=== PATIENT | male | born 1980 | race Caucasian/White ===

== ENCOUNTER 2017-06-22 12:29 | Emergency (ER) | payer MEDICAID ==
[~2017-06-22] VITALS: Ht 167.6 cm; Wt 71.0 kg
[~2017-06-22 12:29] MED LIST: KEP500T PO; LEVE10002 PO; PHEN100C4 PO
[2017-06-22] MEDS ORDERED: PRED20TA PO (12:44)
[2017-06-22] MEDS ORDERED: DOXY100C43 PO (12:44)
[2017-06-22 12:57] VITALS: BP 143/83
== END 2017-06-22 13:20 | disposition home or self-care (01) ==
LOC: ER 12:29
DX: L03.114 Cellulitis of left upper limb (principal); L03.113 Cellulitis of right upper limb; L23.7 Allergic contact dermatitis due to plants, except food; G89.29 Other chronic pain; F12.90 Cannabis use, unspecified, uncomplicated; Z60.2 Problems related to living alone; Z59.0 Homelessness
CPT/HCPCS: 99283

== ENCOUNTER 2017-07-15 14:09 | Inpatient (IN) | payer MEDICAID ==
[~2017-07-15] VITALS: Ht 167.6 cm; Wt 80.0 kg
[~2017-07-15 14:09] MED LIST changes: +PRED20TA PO
[2017-07-15 15:44] LABS: BASOPHILS # (AUTO) 0.1 X10'3 (0-0.2); BASOPHILS % (AUTO) 0.5 % (0-1); EOSINOPHILS # (AUTO) 0.5 X10'3 (0-0.9); EOSINOPHILS % (AUTO) 2.7 % (0-6); HEMATOCRIT 38.3 % (42.0-52.0); HEMOGLOBIN 13.3 g/dl (14.0-17.9); LYMPHOCYTES # (AUTO) 2.1 X10'3 (1.1-4.8); LYMPHOCYTES % (AUTO) 12.8 % (21-51); MEAN CORPUSCULAR HEMOGLOBIN 29.6 PG (27.0-31.0); MEAN CORPUSCULAR HGB CONC 34.6 % (33.0-36.5); MEAN CORPUSCULAR VOLUME 85.6 FL (78-98); MEAN PLATELET VOLUME 7.4 FL (7.4-10.4); MONOCYTES # (AUTO) 1.2 X10'3 (0-0.9); MONOCYTES % (AUTO) 7.6 % (2-12); NEUTROPHILS # (AUTO) 12.5 X10'3 (1.8-7.7); NEUTROPHILS % (AUTO) 76.4 % (42-75); PLATELET COUNT 392 X10'3 (140-440); RED BLOOD COUNT 4.48 X10'6 (4.70-6.10); RED CELL DISTRIBUTION WIDTH 15.4 % (11.5-14.5); WHITE BLOOD COUNT 16.4 X10'3 (4.5-11.0)
[2017-07-15 15:58] LABS: INR 1.1 INR; PARTIAL THROMBOPLASTIN TIME 35 SECONDS (22-32); PROTHROMBIN TIME 11.3 SECONDS (9.0-12.0)
[2017-07-15 16:04] LABS: ALANINE AMINOTRANSFERASE 17 U/L (12-78); ALBUMIN 3.4 G/DL (3.4-5.0); ALBUMIN/GLOBULIN RATIO 0.8 (1.1-1.5); ALKALINE PHOSPHATASE 77 IU/L (46-116); ANION GAP 10 (8-16); ASPARTATE AMINO TRANSFERASE 17 U/L (10-37); BILIRUBIN,TOTAL 0.5 MG/DL (0.1-1.0); BLOOD UREA NITROGEN 8 MG/DL (7-18); BUN/CREATININE RATIO 7.9 (5.4-32.0); CALCIUM 8.6 MG/DL (8.5-10.1); CHLORIDE 101 MMOL/L (99-107); CREATININE 1.01 MG/DL (0.60-1.10); GLUCOSE 148 MG/DL (70-104); SODIUM 139 MMOL/L (135-145); TOTAL CARBON DIOXIDE 28.4 MMOL/L (24-32); TOTAL PROTEIN 7.6 G/DL (6.4-8.2); eGFR 84 ML/MIN
[2017-07-15] MEDS ORDERED: normal saline 1000ML IV soln IV ONE (16:20)
[2017-07-15] MEDS ORDERED: potassium Cl 20 mEq SR tablet PO ONE (16:35)
[2017-07-15] MEDS ORDERED: ketorolac trometh. 30mg/ml inj. IV ONE (16:35)
[2017-07-15] MEDS ORDERED: morphine 4 MG/ML inj SYRINge IV ONE (16:35)
[2017-07-15] MEDS ORDERED: ondansetron/PF 4mg/2ml inj IV ONE (16:35)
[2017-07-15] MEDS ORDERED: iohexol 300mg/ml 100ml inj. ONE (17:04)
[2017-07-15 17:48] LABS: CREATINE KINASE 119 U/L (39-308)
[2017-07-15 18:22] LABS: URINE AMPHETAMINE SCREEN POSITIVE (Neg); URINE BARBITUATE SCREEN NEGATIVE (Neg); URINE BENZODIAZEPINES SCREEN NEGATIVE (Neg); URINE CANNABINOID SCREEN POSITIVE (Neg); URINE COCAINE SCREEN NEGATIVE (Neg); URINE METHADONE SCREEN NEGATIVE (Neg); URINE OPIATE SCREEN POSITIVE (Neg); URINE PHENCYCLIDINE SCREEN NEGATIVE (Neg)
[2017-07-15] MEDS ORDERED: LIDOcaine 1.5% w/epinephrine 1:200,000 5ml ampul IJ ONE (19:00)
[2017-07-15] MEDS ORDERED: CefTRIAXone 2gm/NS 100ml IVPB 100 ML IV ONE (19:00)
[2017-07-15] MEDS: vancomycin/NS 1 GM ADD-VANTAGE 250 ML IV SCH (19:19)
[2017-07-15 19:34] LABS: PHENYTOIN (DILANTIN) < 0.5 UG/ML (10.0-20.0)
[2017-07-15] MEDS ORDERED: PHEN100C4 PO (19:53)
[2017-07-15] MEDS ORDERED: magnesium hydroxide 30ml (MOM) UD suspension PO PRN (19:55)
[2017-07-15] MEDS ORDERED: potassium Cl 40MEQ/NS 500ml 500 ML IV PRN ×2 (19:55)
[2017-07-15] MEDS ORDERED: HYDROcodone/acetaminophen 5mg/325mg tablet PO PRN (19:55)
[2017-07-15] MEDS ORDERED: ondansetron/PF 4mg/2ml inj IV PRN (19:55)
[2017-07-15] MEDS: K and/or MAG REPLACEMENT MC SCH (19:55)
[2017-07-15] MEDS: cefTRIAXone 1g/NS 100ml IVPB 100 ML IV SCH (19:55)
[2017-07-15] MEDS ORDERED: mag hydrox/Alum hydrox/simeth 30ml oral suspension PO PRN (19:55)
[2017-07-15] MEDS ORDERED: potassium Cl 20 mEq SR tablet PO PRN ×2 (19:55)
[2017-07-15] MEDS ORDERED: acetaminophen 325mg tablet PO PRN ×2 (19:55)
[2017-07-15] MEDS ORDERED: vancomycin/NS 1 GM ADD-VANTAGE 250 ML IV SCH (20:00)
[2017-07-15] MEDS ORDERED: temazepam 15mg capsule PO PRN (21:00)
[2017-07-15] MEDS ORDERED: potassium Cl 40MEQ/NS 500ml 500 ML IV ONE (22:44)
[2017-07-16] MEDS: HYDROcodone/acetaminophen 10/325mg tab PO PRN ×3 (02:05→17:59)
[2017-07-16] MEDS: vancomycin/NS 1 GM ADD-VANTAGE 250 ML IV SCH ×3 (03:52→20:54)
[2017-07-16 05:51] LABS: BASOPHILS # (AUTO) 0.1 X10'3 (0-0.2); BASOPHILS % (AUTO) 0.6 % (0-1); EOSINOPHILS # (AUTO) 0.5 X10'3 (0-0.9); EOSINOPHILS % (AUTO) 3.4 % (0-6); HEMATOCRIT 35.5 % (42.0-52.0); HEMOGLOBIN 12.1 g/dl (14.0-17.9); LYMPHOCYTES # (AUTO) 2.3 X10'3 (1.1-4.8); LYMPHOCYTES % (AUTO) 15.2 % (21-51); MEAN CORPUSCULAR HEMOGLOBIN 29.9 PG (27.0-31.0); MEAN CORPUSCULAR VOLUME 87.9 FL (78-98); MEAN PLATELET VOLUME 7.8 FL (7.4-10.4); MONOCYTES # (AUTO) 1.6 X10'3 (0-0.9); MONOCYTES % (AUTO) 10.9 % (2-12); NEUTROPHILS # (AUTO) 10.5 X10'3 (1.8-7.7); NEUTROPHILS % (AUTO) 69.9 % (42-75); PLATELET COUNT 336 X10'3 (140-440); RED BLOOD COUNT 4.04 X10'6 (4.70-6.10); RED CELL DISTRIBUTION WIDTH 15.3 % (11.5-14.5)
[2017-07-16 06:25] LABS: ALBUMIN 2.6 G/DL (3.4-5.0); ANION GAP 7 (8-16); BLOOD UREA NITROGEN 7 MG/DL (7-18); BUN/CREATININE RATIO 7.9 (5.4-32.0); CALCIUM 8.1 MG/DL (8.5-10.1); CHLORIDE 107 MMOL/L (99-107); CREATININE 0.89 MG/DL (0.60-1.10); GLUCOSE 122 MG/DL (70-104); POTASSIUM 4.4 MMOL/L (3.5-5.1); SODIUM 142 MMOL/L (135-145); TOTAL CARBON DIOXIDE 28.2 MMOL/L (24-32); eGFR > 90 ML/MIN
[2017-07-16] MEDS: K and/or MAG REPLACEMENT MC SCH (08:00)
[2017-07-16 08:10] VITALS: BP 135/78
[2017-07-16] MEDS: cefTRIAXone 1g/NS 100ml IVPB 100 ML IV SCH (09:02)
[2017-07-16 09:41] LABS: HEMOGLOBIN A1C 5.9 % (4.5-6.2)
[2017-07-16 10:00] VITALS: BP 130/74
[2017-07-16 19:00] VITALS: BP 110/66
[2017-07-16] MEDS ORDERED: VANCOMYCIN LEVEL IV NR (19:30)
== END 2017-07-16 21:20 | disposition left against medical advice (07) | DRG 720 ==
LOC: ER 14:09 → ED HOLD 19:53 → ORTHO 4S 07-16 07:50 → OBSVTOIN 07-16 14:00
PROVIDERS: ADMIT Hospitalist; ATTEND Family Medicine
PROC: BQ2R1ZZ Computerized Tomography (CT Scan) of Right Lower Extremity using Low Osmolar Contrast (ICD-10-PCS; principal; 2017-07-15)
DX: A41.9 Sepsis, unspecified organism (principal); L03.115 Cellulitis of right lower limb; E87.6 Hypokalemia; F12.90 Cannabis use, unspecified, uncomplicated; F15.10 Other stimulant abuse, uncomplicated; G40.909 Epilepsy, unspecified, not intractable, without status epilepticus; M72.9 Fibroblastic disorder, unspecified; Z53.21 Procedure and treatment not carried out due to patient leaving prior to being seen by health care provider; Z60.2 Problems related to living alone; D64.9 Anemia, unspecified; M54.9 Dorsalgia, unspecified; G89.29 Other chronic pain; Z88.0 Allergy status to penicillin; Z59.0 Homelessness; Z86.14 Personal history of Methicillin resistant Staphylococcus aureus infection
CPT/HCPCS: 10060; 36415; 73701; 80048; 80053; 80185; 80202; 80305; 82550; 83036; 83605; 84132; 84145; 85025; 85610; 85730; 87040; 93005; 93971; 96361; 96365; 96375; 99285; A6258; A6266; A6402; A6446; A6449; G0378; J0696; J1885; J2270; J2405; J3370; J3480; J3490; J7030; Q9967

== ENCOUNTER 2017-11-05 09:54 | Emergency (ER) | payer MEDICAID ==
[~2017-11-05] VITALS: Ht 165.1 cm; Wt 75.9 kg
[~2017-11-05 09:54] MED LIST changes: -KEP500T PO; -LEVE10002 PO; -PRED20TA PO
[2017-11-05] MEDS ORDERED: HYDROcodone/acetaminophen 5mg/325mg tablet PO ONE (11:25)
[2017-11-05] MEDS ORDERED: cephalexin 250mg capsule PO ONE ×2 (11:25)
[2017-11-05] MEDS ORDERED: sulfamethoxazole/trimethoprim DS (800/160mg) tablet PO ONE (11:25)
[2017-11-05] MEDS ORDERED: SULF1TAB49 PO (11:51)
[2017-11-05] MEDS ORDERED: CEPH-572 PO (11:51)
[2017-11-05] MEDS ORDERED: TRAM50TA2 PO (11:51)
[2017-11-05] MEDS ORDERED: MUPI22OI30 TOP (11:51)
[2017-11-05 12:00] VITALS: BP 138/99
== END 2017-11-05 12:15 | disposition home or self-care (01) ==
LOC: ER 09:54
DX: K13.0 Diseases of lips (principal); F12.10 Cannabis abuse, uncomplicated; Z88.0 Allergy status to penicillin
CPT/HCPCS: 99284

== ENCOUNTER 2017-11-05 23:41 | Emergency (ER) | payer MEDICAID ==
[~2017-11-05] VITALS: Ht 167.6 cm; Wt 68.5 kg
[~2017-11-05 23:41] MED LIST changes: +CEPH-572 PO; +MUPI22OI30 TOP; +SULF1TAB49 PO; +TRAM50TA2 PO
[2017-11-05 23:47] VITALS: BP 167/102
== END 2017-11-06 03:12 | disposition left against medical advice (07) ==
LOC: ER 23:42
DX: L08.9 Local infection of the skin and subcutaneous tissue, unspecified (principal); Z53.21 Procedure and treatment not carried out due to patient leaving prior to being seen by health care provider

== ENCOUNTER 2017-11-10 11:35 | Emergency (ER) | payer MEDICAID | END 2017-11-10 14:10 | disposition left against medical advice (07) | LOC: ER 11:35 | DX: L02.818 Cutaneous abscess of other sites (principal); Z53.21 Procedure and treatment not carried out due to patient leaving prior to being seen by health care provider ==

== ENCOUNTER 2017-12-17 17:08 | Emergency (ER) | payer MEDICAID ==
[~2017-12-17] VITALS: Ht 167.6 cm; Wt 76.0 kg
[~2017-12-17 17:08] MED LIST changes: -CEPH-572 PO; -MUPI22OI30 TOP; -SULF1TAB49 PO; -TRAM50TA2 PO
[2017-12-17 17:10] VITALS: BP 161/102
[2017-12-17] MEDS ORDERED: IBUP-1986 PO (20:31)
== END 2017-12-17 20:41 | disposition home or self-care (01) ==
LOC: ER 17:09
DX: S00.83XA Contusion of other part of head, initial encounter (principal); S00.03XA Contusion of scalp, initial encounter; G40.909 Epilepsy, unspecified, not intractable, without status epilepticus; R68.84 Jaw pain; H53.2 Diplopia; G89.29 Other chronic pain; F12.90 Cannabis use, unspecified, uncomplicated; Z59.0 Homelessness; Z60.2 Problems related to living alone; Z88.0 Allergy status to penicillin; Z79.899 Other long term (current) drug therapy; W18.39XA Other fall on same level, initial encounter; Y93.89 Activity, other specified; Y92.89 Other specified places as the place of occurrence of the external cause; Y99.8 Other external cause status
CPT/HCPCS: 70486; 99284

== ENCOUNTER 2018-01-30 01:40 | Emergency (ER) | payer MEDICAID ==
[~2018-01-30] VITALS: Ht 167.6 cm; Wt 70.0 kg
[~2018-01-30 01:40] MED LIST changes: +IBUP-1986 PO
[2018-01-30 01:46] VITALS: BP 147/90
[2018-01-30] MEDS ORDERED: SULF1TAB49 PO (02:15)
[2018-01-30] MEDS ORDERED: CLIN150C2 PO (02:15)
== END 2018-01-30 02:28 | disposition home or self-care (01) ==
LOC: ER 01:41
DX: L03.221 Cellulitis of neck (principal); L02.11 Cutaneous abscess of neck; G89.29 Other chronic pain; F12.90 Cannabis use, unspecified, uncomplicated; Z60.2 Problems related to living alone; Z59.0 Homelessness; Z88.0 Allergy status to penicillin; Z79.2 Long term (current) use of antibiotics; Z79.899 Other long term (current) drug therapy
CPT/HCPCS: 99283

== ENCOUNTER 2018-07-04 00:32 | Emergency (ER) | payer MEDICAID ==
[~2018-07-04] VITALS: Ht 175.3 cm; Wt 90.0 kg
[2018-07-04] MEDS ORDERED: morphine 4 MG/ML inj SYRINge IV PRN (00:50)
[2018-07-04] MEDS ORDERED: normal saline 1000ML IV soln IVB ONE (00:50)
[2018-07-04] MEDS ORDERED: phenytoin sod 50mg/ml 2ml vial IV ONE (00:50)
[2018-07-04] MEDS ORDERED: ondansetron/PF 4mg/2ml inj IV ONE (00:50)
[2018-07-04] MEDS ORDERED: FOSPHENYTOIN IV ONE (01:00)
[2018-07-04 01:04] LABS: BASOPHILS # (AUTO) 0.1 X10'3 (0-0.2); BASOPHILS % (AUTO) 0.9 % (0-1); EOSINOPHILS # (AUTO) 0.1 X10'3 (0-0.9); EOSINOPHILS % (AUTO) 1.8 % (0-6); HEMATOCRIT 42.3 % (42.0-52.0); HEMOGLOBIN 13.7 g/dl (14.0-17.9); LYMPHOCYTES # (AUTO) 2.3 X10'3 (1.1-4.8); LYMPHOCYTES % (AUTO) 31.5 % (21-51); MEAN CORPUSCULAR HEMOGLOBIN 29.2 PG (27.0-31.0); MEAN CORPUSCULAR HGB CONC 32.5 g/dL (33.0-36.5); MEAN CORPUSCULAR VOLUME 89.8 FL (78-98); MEAN PLATELET VOLUME 7.6 FL (7.4-10.4); MONOCYTES # (AUTO) 0.8 X10'3 (0-0.9); MONOCYTES % (AUTO) 11.3 % (2-12); NEUTROPHILS # (AUTO) 3.9 X10'3 (1.8-7.7); NEUTROPHILS % (AUTO) 54.5 % (42-75); PLATELET COUNT 463 X10'3 (140-440); RED BLOOD COUNT 4.71 X10'6 (4.70-6.10); RED CELL DISTRIBUTION WIDTH 14.2 % (11.5-14.5); WHITE BLOOD COUNT 7.2 X10'3 (4.5-11.0)
[2018-07-04 01:08] LABS: ALANINE AMINOTRANSFERASE 22 U/L (12-78); ALBUMIN 3.9 G/DL (3.4-5.0); ALBUMIN/GLOBULIN RATIO 1.1 (1.1-1.5); ALKALINE PHOSPHATASE 68 IU/L (46-116); ANION GAP 13 (8-16); ASPARTATE AMINO TRANSFERASE 22 U/L (10-37); BILIRUBIN,TOTAL 0.4 MG/DL (0.1-1.0); BLOOD UREA NITROGEN 18 MG/DL (7-18); BUN/CREATININE RATIO 16.8 (5.4-32.0); CALCIUM 8.7 MG/DL (8.5-10.1); CHLORIDE 103 MMOL/L (99-107); CREATININE 1.07 MG/DL (0.60-1.10); ETHANOL < 0.010 GM/DL (0.0-0.010); GLUCOSE 90 MG/DL (70-104); LIPASE 136 U/L (73-393); POTASSIUM 3.3 MMOL/L (3.5-5.1); SODIUM 142 MMOL/L (135-145); TOTAL PROTEIN 7.3 G/DL (6.4-8.2); eGFR 78 ML/MIN
[2018-07-04 01:25] LABS: PHENYTOIN (DILANTIN) < 0.5 UG/ML (10.0-20.0)
[2018-07-04] MEDS ORDERED: PHEN100C4 PO (01:35)
--- NOTE | 2018-07-04 01:42 | NUR ---
NO SEIZURE ACTIVITY NOTED.
[2018-07-04 01:43] VITALS: BP 141/87
== END 2018-07-04 01:44 | disposition home or self-care (01) ==
LOC: ER 00:32
DX: R56.9 Unspecified convulsions (principal); G89.29 Other chronic pain; F12.10 Cannabis abuse, uncomplicated; Z91.14 Patient's other noncompliance with medication regimen; Z59.0 Homelessness; Z88.0 Allergy status to penicillin
CPT/HCPCS: 36415; 80053; 80185; 80320; 83690; 85025; 96374; 99283; J7030; Q2009; J1165

== ENCOUNTER 2018-07-17 22:04 | Emergency (ER) | payer MEDICAID ==
[~2018-07-17] VITALS: Ht 167.6 cm; Wt 58.0 kg
[2018-07-17] MEDS ORDERED: acetaminophen 325mg tablet PO ONE (22:50)
[2018-07-17 23:03] VITALS: BP 159/87
[2018-07-17 23:04] LABS: BASOPHILS # (AUTO) 0.2 X10'3 (0-0.2); BASOPHILS % (AUTO) 1.5 % (0-1); EOSINOPHILS # (AUTO) 0.5 X10'3 (0-0.9); EOSINOPHILS % (AUTO) 4.4 % (0-6); HEMATOCRIT 42.6 % (42.0-52.0); HEMOGLOBIN 14.1 g/dl (14.0-17.9); LYMPHOCYTES # (AUTO) 2.5 X10'3 (1.1-4.8); MEAN CORPUSCULAR HEMOGLOBIN 29.6 PG (27.0-31.0); MEAN CORPUSCULAR HGB CONC 33.1 g/dL (33.0-36.5); MEAN CORPUSCULAR VOLUME 89.4 FL (78-98); MEAN PLATELET VOLUME 8.3 FL (7.4-10.4); MONOCYTES % (AUTO) 9.1 % (2-12); NEUTROPHILS # (AUTO) 7.1 X10'3 (1.8-7.7); PLATELET COUNT 415 X10'3 (140-440); RED BLOOD COUNT 4.76 X10'6 (4.70-6.10); RED CELL DISTRIBUTION WIDTH 14.4 % (11.5-14.5); WHITE BLOOD COUNT 11.3 X10'3 (4.5-11.0)
[2018-07-17 23:06] LABS: ALANINE AMINOTRANSFERASE 24 U/L (12-78); ALBUMIN 3.6 G/DL (3.4-5.0); ALBUMIN/GLOBULIN RATIO 1.1 (1.1-1.5); ALKALINE PHOSPHATASE 64 IU/L (46-116); ANION GAP 8 (8-16); ASPARTATE AMINO TRANSFERASE 20 U/L (10-37); BILIRUBIN,TOTAL 0.2 MG/DL (0.1-1.0); BLOOD UREA NITROGEN 20 MG/DL (7-18); BUN/CREATININE RATIO 19.8 (5.4-32.0); CALCIUM 8.7 MG/DL (8.5-10.1); CHLORIDE 108 MMOL/L (99-107); CREATININE 1.01 MG/DL (0.60-1.10); ETHANOL < 0.010 GM/DL (0.0-0.010); POTASSIUM 3.2 MMOL/L (3.5-5.1); SODIUM 145 MMOL/L (135-145); TOTAL CARBON DIOXIDE 28.8 MMOL/L (24-32); eGFR 83 ML/MIN
[2018-07-17 23:07] LABS: PHENYTOIN (DILANTIN) < 0.5 UG/ML (10.0-20.0)
[2018-07-17 23:08] LABS: GLUCOSE 127 MG/DL (70-104)
== END 2018-07-17 23:06 | disposition left against medical advice (07) ==
LOC: ER 22:04
DX: G40.909 Epilepsy, unspecified, not intractable, without status epilepticus (principal); F11.10 Opioid abuse, uncomplicated; F12.90 Cannabis use, unspecified, uncomplicated; F15.90 Other stimulant use, unspecified, uncomplicated; G89.29 Other chronic pain; Z88.0 Allergy status to penicillin; Z79.899 Other long term (current) drug therapy; Z59.0 Homelessness; Z60.2 Problems related to living alone
CPT/HCPCS: 36415; 80053; 80185; 80320; 85025; 99284

== ENCOUNTER 2018-07-27 05:38 | Emergency (ER) | payer MEDICAID ==
[~2018-07-27] VITALS: Ht 167.6 cm; Wt 73.0 kg
[2018-07-27 05:43] VITALS: BP 151/101
[2018-07-27] MEDS ORDERED: MUPI22OI30 TOP (05:48)
== END 2018-07-27 06:06 | disposition home or self-care (01) ==
LOC: ER 05:39
DX: S60.562A Insect bite (nonvenomous) of left hand, initial encounter (principal); S60.561A Insect bite (nonvenomous) of right hand, initial encounter; S10.96XA Insect bite of unspecified part of neck, initial encounter; S80.862A Insect bite (nonvenomous), left lower leg, initial encounter; S80.861A Insect bite (nonvenomous), right lower leg, initial encounter; G89.29 Other chronic pain; F12.90 Cannabis use, unspecified, uncomplicated; F15.90 Other stimulant use, unspecified, uncomplicated; Z60.2 Problems related to living alone; Z59.0 Homelessness; Z88.0 Allergy status to penicillin; Z79.899 Other long term (current) drug therapy; W57.XXXA Bitten or stung by nonvenomous insect and other nonvenomous arthropods, initial encounter; Y93.89 Activity, other specified; Y92.89 Other specified places as the place of occurrence of the external cause; Y99.8 Other external cause status
CPT/HCPCS: 99283

== ENCOUNTER 2019-06-27 17:38 | Emergency (ER) | payer MEDICAID ==
[~2019-06-27] VITALS: Ht 167.6 cm; Wt 80.0 kg
[2019-06-27 17:44] VITALS: BP 151/110
[2019-06-27 19:20] LABS: CLARITY,URINE CLEAR (Clear); COLOR,URINE YELLOW (Yellow); GLUCOSE, URINE NEGATIVE (Neg); KETONES,URINE NEGATIVE (Neg); LEUKOCYTE ESTERASE ,URINE NEGATIVE (Neg); NITRITES, URINE NEGATIVE (Neg); OCCULT BLOOD,URINE NEGATIVE (Neg); PH,URINE 6.5 (4.8-8.0); PROTEIN,URINE NEGATIVE (Neg); UROBILINOGEN,URINE 0.2 E.U/dL (0.2-1.0)
[2019-06-27 19:39] LABS: UA COLLECTION TYPE CLN CATCH MIDSTREAM
== END 2019-06-27 20:34 | disposition left against medical advice (07) ==
LOC: ER 17:39
DX: R19.7 Diarrhea, unspecified (principal); Z53.21 Procedure and treatment not carried out due to patient leaving prior to being seen by health care provider
CPT/HCPCS: 81003

== ENCOUNTER 2019-07-03 15:01 | Emergency (ER) | payer MEDICAID ==
[~2019-07-03] VITALS: Ht 167.6 cm; Wt 78.0 kg
[2019-07-03 15:18] VITALS: BP 156/96
[2019-07-03] MEDS ORDERED: SULF1TAB49 PO (15:54)
[2019-07-03] MEDS ORDERED: CEPH500C5 PO (15:54)
== END 2019-07-03 16:26 | disposition home or self-care (01) ==
LOC: ER 15:01
DX: L02.01 Cutaneous abscess of face (principal); G89.29 Other chronic pain; F12.90 Cannabis use, unspecified, uncomplicated; F15.90 Other stimulant use, unspecified, uncomplicated; Z86.69 Personal history of other diseases of the nervous system and sense organs; Z59.0 Homelessness; Z88.0 Allergy status to penicillin; Z79.899 Other long term (current) drug therapy
CPT/HCPCS: 99283

== ENCOUNTER 2019-07-04 16:12 | Emergency (ER) | payer MEDICAID ==
[~2019-07-04 16:12] MED LIST changes: +CEPH500C5 PO; +SULF1TAB49 PO
[2019-07-05] MEDS ORDERED: HYDR-4383 PO (08:56)
[2019-07-05] MEDS ORDERED: SULF1TAB49 PO (08:56)
[2019-07-05] MEDS ORDERED: CEPH-572 PO (08:56)
== END 2019-07-04 17:45 | disposition left against medical advice (07) ==
LOC: ER 16:12
DX: L02.01 Cutaneous abscess of face (principal); Z53.21 Procedure and treatment not carried out due to patient leaving prior to being seen by health care provider

== ENCOUNTER 2019-07-05 08:26 | Emergency (ER) | payer MEDICAID ==
[~2019-07-05] VITALS: Ht 167.6 cm; Wt 78.2 kg
--- NOTE | 2019-07-05 08:33 | NUR ---
BELONGINGS IN LOCKER 2, ONE BAG PER SECURITY.
[2019-07-05] MEDS ORDERED: LIDOcaine/epinephrine/tetracaine TOPICAL sol 3 ML syringe TOP ONE (08:45)
[2019-07-05] MEDS ORDERED: LIDOcaine 1% W/epiNEPHrine 1:200,000 10ml vial IJ ONE (08:45)
[2019-07-05] MEDS ORDERED: CefTRIAXone 1000mg IM Kit (w/lidocaine diluent) IM ONE (08:55)
[2019-07-05] MEDS ORDERED: CEPH-572 PO (08:56)
[2019-07-05] MEDS ORDERED: HYDR-4383 PO (08:56)
[2019-07-05] MEDS ORDERED: SULF1TAB49 PO (08:56)
[2019-07-05 09:46] VITALS: BP 151/83
== END 2019-07-05 09:47 | disposition home or self-care (01) ==
LOC: ER 08:26
DX: H44.002 Unspecified purulent endophthalmitis, left eye (principal); G89.29 Other chronic pain; F12.90 Cannabis use, unspecified, uncomplicated; F15.90 Other stimulant use, unspecified, uncomplicated; Z59.0 Homelessness; Z88.0 Allergy status to penicillin
CPT/HCPCS: 10060; 87070; 87077; 87186; 96372; 99283; J0696

== ENCOUNTER 2019-07-13 15:00 | Emergency (ER) | payer MEDICAID ==
[~2019-07-13] VITALS: Ht 167.6 cm; Wt 78.2 kg
[~2019-07-13 15:00] MED LIST changes: -CEPH500C5 PO; +HYDR-4383 PO; -SULF1TAB49 PO
[2019-07-13 15:12] VITALS: BP 145/89
== END 2019-07-13 16:00 | disposition left against medical advice (07) ==
LOC: ER 15:01
DX: S80.12XA Contusion of left lower leg, initial encounter (principal); G89.29 Other chronic pain; F12.90 Cannabis use, unspecified, uncomplicated; F15.90 Other stimulant use, unspecified, uncomplicated; Z86.69 Personal history of other diseases of the nervous system and sense organs; Z59.0 Homelessness; Z88.0 Allergy status to penicillin; Z79.899 Other long term (current) drug therapy; X58.XXXA Exposure to other specified factors, initial encounter; Y93.89 Activity, other specified; Y92.89 Other specified places as the place of occurrence of the external cause; Y99.8 Other external cause status
CPT/HCPCS: 99283

== ENCOUNTER 2019-08-14 13:36 | Emergency (ER) | payer MEDICAID ==
[~2019-08-14] VITALS: Ht 167.6 cm; Wt 78.2 kg
[2019-08-14 13:46] VITALS: BP 140/93
[2019-08-14 14:12] LABS: ALBUMIN 3.8 G/DL (3.4-5.0); ANION GAP 8 (8-16); BLOOD UREA NITROGEN 12 MG/DL (7-18); BUN/CREATININE RATIO 11.1 (5.4-32.0); CALCIUM 8.9 MG/DL (8.5-10.1); CHLORIDE 107 MMOL/L (99-107); CREATININE 1.08 MG/DL (0.60-1.10); GLUCOSE 98 MG/DL (70-104); POTASSIUM 3.7 MMOL/L (3.5-5.1); SODIUM 143 MMOL/L (135-145); TOTAL CARBON DIOXIDE 28.2 MMOL/L (24-32); eGFR 77 ML/MIN
[2019-08-14] MEDS ORDERED: PHEN100C4 PO (14:25)
[2019-08-14] MEDS ORDERED: phenytoin sod 50mg/ml 2ml vial IV ONE (21:00)
== END 2019-08-14 15:37 | disposition home or self-care (01) ==
LOC: ER 13:37
DX: G40.909 Epilepsy, unspecified, not intractable, without status epilepticus (principal); G89.29 Other chronic pain; F12.90 Cannabis use, unspecified, uncomplicated; F15.90 Other stimulant use, unspecified, uncomplicated; Z59.0 Homelessness; Z88.0 Allergy status to penicillin
CPT/HCPCS: 36415; 80048; 96374; 99284; J1165

== ENCOUNTER 2019-08-18 07:57 | Emergency (ER) | payer MEDICAID ==
[~2019-08-18] VITALS: Ht 167.6 cm; Wt 78.2 kg
[2019-08-18 07:58] VITALS: BP 135/84
--- NOTE | 2019-08-18 08:14 | NUR ---
Pt engaged in stressful phone call when ANKITA Muse attempted assessment. Shortly after pt walked out of ED w/o being seen. ANKITA Muse notified.
== END 2019-08-18 08:19 | disposition left against medical advice (07) ==
LOC: ER 07:58
DX: R21 Rash and other nonspecific skin eruption (principal); G89.29 Other chronic pain; F12.90 Cannabis use, unspecified, uncomplicated; F15.90 Other stimulant use, unspecified, uncomplicated; Z86.69 Personal history of other diseases of the nervous system and sense organs; Z59.0 Homelessness; Z88.0 Allergy status to penicillin; Z79.899 Other long term (current) drug therapy
CPT/HCPCS: 99281

== ENCOUNTER 2019-10-09 19:50 | Emergency (ER) | payer MEDICAID ==
[~2019-10-09] VITALS: Ht 167.6 cm; Wt 80.0 kg
[2019-10-09] MEDS ORDERED: levetiracetam inj 1,000 MG in normal saline 100ml IV soln 90 ML IV STA (19:56)
[2019-10-09] MEDS ORDERED: normal saline 1000ML IV soln IVB ONE (20:00)
[2019-10-09] MEDS ORDERED: LORazepam 2 mg/ml vial IV ONE (20:00)
[2019-10-09] MEDS ORDERED: magnesium 2GM in 50ml NS 50 ML IV ONE (20:00)
[2019-10-09] MEDS ORDERED: levetiracetam-NS 1000mg/100ml 100 ML IV STA (20:06)
[2019-10-09] MEDS ORDERED: phenytoin sod 50mg/ml 2ml vial IV STA (20:31)
[2019-10-09 20:41] LABS: BASOPHILS # (AUTO) 0.1 X10'3 (0-0.2); BASOPHILS % (AUTO) 1.4 % (0-1); EOSINOPHILS # (AUTO) 0.5 X10'3 (0-0.9); EOSINOPHILS % (AUTO) 4.9 % (0-6); HEMATOCRIT 39.3 % (42.0-52.0); HEMOGLOBIN 12.9 g/dl (14.0-17.9); LYMPHOCYTES # (AUTO) 2.2 X10'3 (1.1-4.8); LYMPHOCYTES % (AUTO) 21.6 % (21-51); MEAN CORPUSCULAR HGB CONC 32.9 g/dL (33.0-36.5); MEAN CORPUSCULAR VOLUME 88.1 FL (78-98); MEAN PLATELET VOLUME 7.3 FL (7.4-10.4); MONOCYTES % (AUTO) 9.9 % (2-12); NEUTROPHILS # (AUTO) 6.4 X10'3 (1.8-7.7); NEUTROPHILS % (AUTO) 62.2 % (42-75); PLATELET COUNT 401 X10'3 (140-440); RED BLOOD COUNT 4.46 X10'6 (4.70-6.10); RED CELL DISTRIBUTION WIDTH 14.7 % (11.5-14.5); WHITE BLOOD COUNT 10.3 X10'3 (4.5-11.0)
[2019-10-09 21:11] LABS: ALANINE AMINOTRANSFERASE 20 U/L (12-78); ALBUMIN 3.5 G/DL (3.4-5.0); ALBUMIN/GLOBULIN RATIO 1.1 (1.1-1.5); ALKALINE PHOSPHATASE 65 IU/L (46-116); ANION GAP 11 (8-16); ASPARTATE AMINO TRANSFERASE 16 U/L (10-37); BILIRUBIN,TOTAL 0.1 MG/DL (0.1-1.0); BLOOD UREA NITROGEN 21 MG/DL (7-18); BUN/CREATININE RATIO 18.8 (5.4-32.0); CALCIUM 8.2 MG/DL (8.5-10.1); CHLORIDE 108 MMOL/L (99-107); CREATININE 1.12 MG/DL (0.60-1.10); GLUCOSE 131 MG/DL (70-104); POTASSIUM 3.6 MMOL/L (3.5-5.1); SODIUM 145 MMOL/L (135-145); TOTAL CARBON DIOXIDE 26.4 MMOL/L (24-32); TOTAL PROTEIN 6.6 G/DL (6.4-8.2); eGFR 73 ML/MIN
[2019-10-09 21:13] LABS: ETHANOL < 0.010 GM/DL (0.0-0.010); PHENYTOIN (DILANTIN) < 0.5 UG/ML (10.0-20.0)
[2019-10-09] MEDS ORDERED: LORA-269 PO (21:22)
[2019-10-09] MEDS ORDERED: PHEN200C4 PO (21:22)
--- NOTE | 2019-10-09 21:32 | NUR ---
C-COLLAR REMOVED PER MALVIN LOOMIS
--- NOTE | 2019-10-09 21:57 | NUR ---
Pt sleeping on back. Respirations unlabored. NAD
[2019-10-09 23:19] VITALS: BP 128/80
== END 2019-10-09 23:21 | disposition home or self-care (01) ==
LOC: ER 19:50
DX: T67.9XXA Effect of heat and light, unspecified, initial encounter (principal); G40.909 Epilepsy, unspecified, not intractable, without status epilepticus; E86.0 Dehydration; M54.2 Cervicalgia; G89.29 Other chronic pain; F12.90 Cannabis use, unspecified, uncomplicated; F15.90 Other stimulant use, unspecified, uncomplicated; Z86.69 Personal history of other diseases of the nervous system and sense organs; Z59.0 Homelessness; Z88.8 Allergy status to other drugs, medicaments and biological substances; Z88.0 Allergy status to penicillin; Z79.899 Other long term (current) drug therapy; X30.XXXA Exposure to excessive natural heat, initial encounter; Y93.89 Activity, other specified; Y99.8 Other external cause status; Y92.89 Other specified places as the place of occurrence of the external cause
CPT/HCPCS: 36415; 70450; 71045; 72125; 80053; 80185; 80320; 85025; 93005; 96361; 96365; 96366; 96375; 99285; J1165; J2060; J3475; J7030